=== PATIENT | female | born 1990 | race African-American/Black ===

== ENCOUNTER 2016-12-05 14:36 | Outpatient (CLI) | payer OTHER ==
[~2016-12-05] VITALS: Ht 180.3 cm; Wt 66.3 kg
[~2016-12-05 14:36] MED LIST: AMOXICILLIN 50500 MG PO; BENTYL 10MG10 MG/CAP PO; BENTYL 20MG20 MG/TAB PO; FLEXERIL5 MG PO; LORTAB 5/500 501 TAB PO; NO HOME MEDICATIONS; NORCO 325 MG-7.1 TAB PO; PEN-VEE K250 MG PO; PREDNISONE 2.52.5 MG PO; TYLENOL W/COD1 UDTAB PO; YAZ 28 3 MG-0.01 TAB PO; [UNRECOGNIZED DRUG - OTHER] PO
[2016-12-05 15:16] VITALS: BP 112/64; PULSE 83; TEMP 98.3
== END 2016-12-05 16:52 | disposition home or self-care (01) ==
LOC: EUO 14:36
DX: K50.90 Crohn's disease, unspecified, without complications (principal); R53.83 Other fatigue; E61.1 Iron deficiency
CPT/HCPCS: J2916